=== PATIENT | female | born 1975 | race Caucasian/White ===

== ENCOUNTER → 2021-10-31 | Day surgery (SDC) | payer OTHER ==
[~2021-10-31] VITALS: Ht 175.3 cm; Wt 107.1 kg
[~2021-10-31] MED LIST: BISOPROLOL FUMA10 MG PO; COSENTYX S150 MG/1 M SC; DECADRON6 MG PO; JANUVIA100 MG PO; LEVONOR PO; NORVASC5 MG PO; PAXIL20 MG PO; PRAVASTATIN SOD10 MG PO; PRILOSEC20 MG PO; PROBIOTIC1 EAC1 PO
[2021-10-31 10:24] LABS: HCG (URINE) SCREEN NEGATIVE (NEGATIVE)
== END | disposition home or self-care (01) ==
LOC: FAS 10:05
PROVIDERS: Anesthesiology
DX: Z12.11 Encounter for screening for malignant neoplasm of colon (principal); D12.3 Benign neoplasm of transverse colon; E11.9 Type 2 diabetes mellitus without complications; I10 Essential (primary) hypertension; E04.9 Nontoxic goiter, unspecified; Z87.891 Personal history of nicotine dependence; Z88.0 Allergy status to penicillin; Z88.8 Allergy status to other drugs, medicaments and biological substances; Z91.013 Allergy to seafood
CPT/HCPCS: 82962; 84703; J2704; J7120